=== PATIENT | male | born 1935 | race Caucasian/White ===

== ENCOUNTER 2017-05-11 09:29 | Emergency (ER) | payer OTHER ==
[~2017-05-11] VITALS: Ht 157.5 cm; Wt 59.1 kg
[2017-05-11 09:33] VITALS: TEMP 98
[2017-05-11 10:11] LABS: BASO % 0.6 % (0.0-2.0); EOS # 0.6 (0.0-0.7); EOS % 8.1 % (0-4.0); GRAN # 4.6 (1.4-6.5); GRAN % 67.5 % (42.2-75.2); HEMATOCRIT 40.1 % (42.0-52.0); LYMPH # 0.8 (1.2-3.4); LYMPH % 12.2 % (20.0-51.0); MEAN CELL VOLUME 94 fl (80.0-100.0); MEAN CORPUSCULAR HEMOGLOBIN 31 pg (27.0-31.0); MEAN CORPUSCULAR HGB CONC 32 g/dl (33.0-37.0); MEAN PLATELET VOLUME 11.1 fl (7.4-10.4); MONO # 0.8 (0.1-0.6); MONO % 11.3 % (1.7-9.3); PLATELET COUNT 154 K/mm3 (130-400); RED BLOOD COUNT 4.25 M/mm3 (4.20-5.60); REDCELL DISTRIBUTION WIDTH-CV 13.6 % (11.5-14.5)
[2017-05-11 10:16] LABS: PROTHROMBIN TIME 12.1 SECONDS (9.7-12.8)
[2017-05-11 10:19] LABS: PARTIAL THROMBOPLASTIN TIME 29.3 SECONDS (26.0-37.0)
[2017-05-11 10:20] LABS: ALANINE AMINOTRANSFERASE 23 U/L (21-72); ALBUMIN 3.8 gm/dL (3.5-5.0); ALKALINE PHOSPHATASE 84 U/L (50-136); ANION GAP 6 mmol/L (7-16); AST,SGOT 21 U/L (15-37); BILIRUBIN,TOTAL 0.6 mg/dL (0.0-1.0); BLOOD UREA NITROGEN 19 mg/dL (9-20); CALCIUM 8.6 mg/dL (8.4-10.2); CARBON DIOXIDE 26 mmol/L (22-30); CHLORIDE 106 mmol/L (98-107); CREATININE, serum 1.19 mg/dL (0.66-1.25); GLUCOSE 97 mg/dL (74-106); POTASSIUM 4.2 mmol/L (3.4-5.0); SODIUM 139 mmol/L (137-145); TOTAL PROTEIN 6.9 gm/dL (6.4-8.2)
[2017-05-11 10:33] LABS: TROPONIN-I < 0.012 ng/mL (0.000-0.034)
[2017-05-11 10:46] LABS: INFLUENZA A NEGATIVE; INFLUENZA B NEGATIVE
[2017-05-11 14:15] VITALS: BP 125/77; PULSE 56
[2017-05-11] MEDS ORDERED: TESSALON PERLE200 MG PO (14:30)
== END 2017-05-11 14:25 | disposition home or self-care (01) ==
LOC: COL.ER 09:29
PROVIDERS: Emergency Medicine
DX: J06.9 Acute upper respiratory infection, unspecified (principal); Z85.46 Personal history of malignant neoplasm of prostate; Z90.89 Acquired absence of other organs
CPT/HCPCS: Q9967